=== PATIENT | female | born 1970 | race Two or more races ===

== ENCOUNTER 2017-09-28 15:20 | Emergency (ER) | payer OTHER ==
[2017-09-28 18:08] LABS: URINE BLOOD (Dip) POC 3+ (NEGATIVE); URINE GLUCOSE (Dip) POC Negative (NEGATIVE); URINE KETONES (Dip) POC Trace (NEGATIVE); URINE LEUKOCYTE EST (Dip) POC Trace (NEGATIVE); URINE NITRITE (Dip) POC Negative (NEGATIVE); URINE TOTAL PROTEIN POC 1+ (NEGATIVE)
== END 2017-09-28 20:16 | disposition home or self-care (01) ==
LOC: FTE 15:20
DX: B34.9 Viral infection, unspecified (principal)
CPT/HCPCS: 81003; 99283